=== PATIENT | female | born 1990 | race Caucasian/White ===

== ENCOUNTER 2025-02-04 18:32 | Emergency (ER) | payer BC ==
[2025-02-04 19:48] LABS: BASOPHILS ABSOLUTE AUTO 0.09 K/uL (0.00-0.20); BASOPHILS PERCENT AUTO 0.8 % (0.0-1.0); EOSINOPHILS ABSOLUTE AUTO 0.71 K/uL (0.00-0.45); EOSINOPHILS PERCENT AUTO 6.0 % (0.0-6.0); IMMATURE GRAN ABSOLUTE AUTO 0.02 K/uL (0.00-0.05); IMMATURE GRAN PERCENT AUTO 0.2 % (0.0-0.4); LYMPHOCYTES ABSOLUTE AUTO 4.48 K/uL (1.00-4.80); LYMPHOCYTES PERCENT AUTO 37.8 % (24.0-44.0); MEAN PLATELET VOLUME 10.5 fL (9.4-12.3); MONOCYTES ABSOLUTE AUTO 0.69 K/uL (0.00-0.80); MONOCYTES PERCENT AUTO 5.8 % (0.0-8.0); NEUTROPHILS ABSOLUTE AUTO 5.85 K/uL (1.80-7.70); NEUTROPHILS PERCENT AUTO 49.4 % (41.0-71.0); NRBC ABSOLUTE 0.00 K/uL (0.00-0.02); NRBC PERCENT 0.0 /100WBC (0.0-0.2); PLATELET COUNT,PLT 298 K/uL (150-400); RED BLOOD CELL COUNT 4.52 M/uL (4.10-5.30); WHITE BLOOD CELL COUNT,WBC 11.84 K/uL (3.9-11.3)
[2025-02-04 19:49] LABS: APPEARANCE,URINE CLEAR; GLUCOSE,URINE NEGATIVE (NEGATIVE); OCCULT BLOOD,URINE LARGE (NEGATIVE)
[2025-02-04 20:01] LABS: EPITHELIAL CELLS,URINE FEW (NONE-FEW)
[2025-02-04 20:09] LABS: A/G RATIO 1.1 (0.9-1.6); ALANINE AMINOTRANSFERASE,ALT 30 IU/L (14-63); ASPARTATE AMNIOTRANSFERASE,AST 20 IU/L (15-37); BILIRUBIN TOTAL 0.2 mg/dL (0.2-1.0); BLOOD UREA NITROGEN,BUN 14 mg/dL (7.0-18.0); CARBON DIOXIDE,CO2 30.2 mmol/L (21.0-32.0); CHLORIDE,CL 102 mmol/L (98-107); CREATININE 0.8 mg/dL (0.6-1.0); GLUCOSE RANDOM 78 mg/dL (74-106); POTASSIUM,K 4.1 mmol/L (3.5-5.1); PROTEIN TOTAL,TP 8.3 g/dL (6.4-8.2); SODIUM,NA 140 mmol/L (136-145)
[2025-02-04 20:12] LABS: ESTIMATED GFR 98 mL/min (>60)
== END 2025-02-04 20:21 | disposition home or self-care (01) ==
LOC: MW.ED 18:32
DX: N93.8 Other specified abnormal uterine and vaginal bleeding (principal); Z88.8 Allergy status to other drugs, medicaments and biological substances; Z75.3 Unavailability and inaccessibility of health-care facilities
CPT/HCPCS: 36415; 80053; 81001; 81025; 85025; 99283; 99284